=== PATIENT | female | born 1965 | race Caucasian/White ===

== ENCOUNTER → 2018-01-09 | Outpatient (CLI) | payer BC ==
[~2018-01-09] MED LIST: ACE3 PO; ASCO-182 PO; CEPH-13 PO; FAMO20TA28 PO; IBU800 PO; IRON18TA2 PO; MOM PO; PREN-67 PO
== END ==
LOC: LAB 10:20
PROVIDERS: ATTEND Surgery
DX: L98.0 Pyogenic granuloma (principal)
CPT/HCPCS: 88305